=== PATIENT | male | born 1990 | race Caucasian/White ===

== ENCOUNTER 2016-09-04 17:01 | Emergency (ER) | payer BC | END 2016-09-04 18:08 | disposition home or self-care (01) | LOC: ER1 17:01 → EDBD 17:01 → ER1 18:08 | DX: S63.522A Sprain of radiocarpal joint of left wrist, initial encounter (principal); F17.210 Nicotine dependence, cigarettes, uncomplicated; W01.0XXA Fall on same level from slipping, tripping and stumbling without subsequent striking against object, initial encounter; Y93.9 Activity, unspecified; Y92.9 Unspecified place or not applicable; Y99.0 Civilian activity done for income or pay | CPT/HCPCS: 29130; 73110; 99283 ==

== ENCOUNTER → 2016-10-05 | Outpatient (CLI) | payer OTHER | LOC: KOH-I 12:35 | DX: M79.672 Pain in left foot (principal); M79.89 Other specified soft tissue disorders | CPT/HCPCS: 73610; 73630 ==